=== PATIENT | female | born 1980 | race Caucasian/White ===

== ENCOUNTER 2017-11-25 10:07 | Emergency (ER) | payer OTHER ==
[~2017-11-25] VITALS: Ht 152.4 cm; Wt 59.0 kg
[2017-11-25] MEDS ORDERED: MEDROLDOSEPACK PO (10:29)
[2017-11-25] MEDS ORDERED: NAPROSYN500 MG PO (10:29)
[2017-11-25] MEDS ORDERED: ZANAFLEX4 MG PO (10:29)
[2017-11-25 10:40] VITALS: BP 122/79
== END 2017-11-25 10:41 | disposition home or self-care (01) ==
LOC: M.ERS 10:07
DX: S29.012A Strain of muscle and tendon of back wall of thorax, initial encounter (principal); S39.012A Strain of muscle, fascia and tendon of lower back, initial encounter; J30.2 Other seasonal allergic rhinitis; W01.0XXA Fall on same level from slipping, tripping and stumbling without subsequent striking against object, initial encounter; Y93.89 Activity, other specified; Y92.89 Other specified places as the place of occurrence of the external cause; Y99.8 Other external cause status

== ENCOUNTER 2018-04-21 14:36 | Emergency (ER) | payer BC ==
[~2018-04-21] VITALS: Ht 154.9 cm; Wt 59.0 kg
[~2018-04-21 14:36] MED LIST: MEDROLDOSEPACK PO; NAPROSYN500 MG PO; ZANAFLEX4 MG PO
[2018-04-21 14:41] VITALS: BP 126/74
[2018-04-21] MEDS ORDERED: LORAZEPAM 0.50.5 M1 PO (15:05)
== END 2018-04-21 15:13 | disposition home or self-care (01) ==
LOC: M.ERS 14:36
DX: F41.9 Anxiety disorder, unspecified (principal); Z77.098 Contact with and (suspected) exposure to other hazardous, chiefly nonmedicinal, chemicals; F32.9 Major depressive disorder, single episode, unspecified; F17.210 Nicotine dependence, cigarettes, uncomplicated

== ENCOUNTER 2018-04-28 07:40 | Emergency (ER) | payer OTHER ==
[~2018-04-28] VITALS: Ht 154.9 cm; Wt 63.5 kg
[~2018-04-28 07:40] MED LIST changes: +LORAZEPAM 0.50.5 M1 PO
[2018-04-28] MEDS ORDERED: PENICILLIN V P500 MG PO (09:00)
[2018-04-28] MEDS ORDERED: IBUPROFEN 800800 MG PO (09:00)
[2018-04-28] MEDS ORDERED: NORCO 5-325 TA1 EACH PO (09:00)
[2018-04-28 09:05] VITALS: BP 121/94
== END 2018-04-28 09:06 | disposition home or self-care (01) ==
LOC: M.ERS 07:40
DX: L03.213 Periorbital cellulitis (principal); K02.9 Dental caries, unspecified; F17.210 Nicotine dependence, cigarettes, uncomplicated; F32.9 Major depressive disorder, single episode, unspecified